=== PATIENT | female | born 1965 | race Two or more races ===

== ENCOUNTER → 2020-01-26 | Emergency (ER) | payer OTHER ==
[~2020-01-26] VITALS: Ht 162.6 cm; Wt 108.9 kg
[~2020-01-26] MED LIST: CLONAZEPAM2 MG; ESTAZOLAM2 MG; GLIPIZIDE10 MG; HYDRALAZINE HCL25 MG; INDERAL LA80 MG; LIPITOR20 MG; LOSARTAN-HCTZ1 EAC2; POTASSIUM CHLO20 ME1 PO; SEROQUEL300 MG; SYNTHROID125 MCG
== END ==
LOC: ER 18:58
DX: K29.60 Other gastritis without bleeding (principal)

== ENCOUNTER 2021-08-11 17:18 | Emergency (ER) | payer OTHER ==
[~2021-08-11] VITALS: Ht 162.6 cm; Wt 99.3 kg
[2021-08-12] MEDS ORDERED: ONDANSETRON ODT4 MG PO (00:51)
[2021-08-12] MEDS ORDERED: INTESTINEX680 M1 PO (00:51)
[2021-08-12] MEDS ORDERED: PEPCID AC20 MG PO (00:51)
[2021-08-12] MEDS ORDERED: DICLOFENAC POTA50 MG PO (00:51)
[2021-08-12] MEDS ORDERED: AMOX-CLAV 875-1 EAC1 PO (00:51)
== END 2021-08-12 01:52 ==
LOC: ER 17:18
DX: K04.7 Periapical abscess without sinus (principal); K08.89 Other specified disorders of teeth and supporting structures; Z20.822 Contact with and (suspected) exposure to COVID-19

== ENCOUNTER 2025-01-25 11:31 | Inpatient (IN) | payer OTHER ==
[~2025-01-25] VITALS: Ht 162.6 cm; Wt 108.9 kg
[~2025-01-25 11:31] MED LIST changes: +AMOX-CLAV 875-1 EAC1 PO; +DICLOFENAC POTA50 MG PO; +INTESTINEX680 M1 PO; +ONDANSETRON ODT4 MG PO; +PEPCID AC20 MG PO
[2025-01-25] MEDS ORDERED: 0.9 % SODIUM CHLORIDE 1,000 ML IV STA (12:57)
[2025-01-25] MEDS ORDERED: ONDANSETRON HCL 2 MG/ML VIAL IV STA (12:57)
[2025-01-25] MEDS ORDERED: FAMOTIDINE/PF 20 MG in 0.9 % SODIUM CHLORIDE 8 ML IV PUSH STA (12:57)
[2025-01-25] MEDS ORDERED: ONDANSETRON HCL 2 MG/ML VIAL ONE ×3 (13:36→19:16)
[2025-01-25] MEDS ORDERED: FAMOTIDINE/PF 20 MG/2 ML VIAL ONE ×2 (13:38→19:13)
[2025-01-25 14:22] LABS: BASO % 0.2 % (0.1-1.2); HEMATOCRIT 42.1 % (34.1-44.9); HEMOGLOBIN 13.2 g/dL (11.2-15.7); LYMPH # 0.86 (1.18-3.74); LYMPH % 3.7 % (19.3-53.1); MEAN CORPUSCULAR HEMOGLOBIN 25.5 pg (25.6-32.2); MONO # 0.37 (0.24-0.82); MONO % 1.6 % (4.7-12.5); NEUT # 21.45 (1.56-6.13); NEUT % 93.6 % (34.0-71.1); PLATELET COUNT 429 K/uL (163-369); RED BLOOD COUNT 5.18 M/uL (3.93-5.22); RED CELL DISTRIBUTION WIDTH 14.6 % (11.6-14.4)
[2025-01-25 14:39] LABS: ALBUMIN 3.9 gm/dL (3.4-5.0); BILIRUBIN TOTAL 1.01 mg/dL (0.3-1.2); CALCIUM 9.8 mg/dL (8.5-10.1); CREATININE SERUM 1.09 mg/dL (0.55-1.02); GFR 51.38; GLOBULINA 4.9 G/DL (2.4-3.5); POTASSIUM 3.75 mEq/L (3.5-5.1); TOTAL PROTEIN 8.8 gm/dL (6.4-8.2)
[2025-01-25] MEDS ORDERED: PROMETHAZINE HCL 25 MG/ML AMPUL ONE (15:56)
[2025-01-25] MEDS ORDERED: PROMETHAZINE HCL 25 MG/ML AMPUL IM ONE (16:00)
[2025-01-25 18:17] LABS: BASO % 0.2 % (0.1-1.2); HEMATOCRIT 41.4 % (34.1-44.9); HEMOGLOBIN 12.9 g/dL (11.2-15.7); LYMPH # 0.63 (1.18-3.74); LYMPH % 2.4 % (19.3-53.1); MEAN CORPUSCULAR HEMOGLOBIN 25.4 pg (25.6-32.2); MONO # 0.39 (0.24-0.82); MONO % 1.5 % (4.7-12.5); NEUT # 24.69 (1.56-6.13); NEUT % 94.9 % (34.0-71.1); PLATELET COUNT 439 K/uL (163-369); RED BLOOD COUNT 5.07 M/uL (3.93-5.22); RED CELL DISTRIBUTION WIDTH 14.8 % (11.6-14.4)
[2025-01-25] MEDS ORDERED: PIPERACILLIN/TAZOBACTAM SODIUM 3.375 GM VIAL IV ONE ×2 (18:30→18:32)
[2025-01-25 19:14] LABS: INR 1.09; PARTIAL THROMBOPLASTIN TIME 27.2 SECONDS (22.0-34.0); PROTHROMBIN TIME 11.8 SECONDS (9.0-11.5)
[2025-01-25] MEDS ORDERED: ONDANSETRON HCL 2 MG/ML VIAL IV ONE (19:15)
[2025-01-25] MEDS ORDERED: FAMOtidine 10 MG/ML (4ML VIAL) IV ONE (19:15)
[2025-01-25 19:30] LABS: URINE APPEARANCE Clear; URINE BILIRRUBIN Negative (NEGATIVE); URINE BLOOD Negative; URINE COLOR Yellow; URINE GLUCOSE Negative (NEGATIVE); URINE LEUKOCYTE Negative; URINE NITRATE Negative; URINE PROTEIN Trace (NEGATIVE); URINE UROBILINOGEN 0.2 E.U./dl
[2025-01-25 19:33] LABS: URINE EPITHELIAL CELLS 10.2 uL (0.0-38.8); URINE RBC 47.4 uL (0.0-20.8); URINE WBC 3.4 uL (0.0-23.2)
[2025-01-25 20:07] LABS: URINE CAST 0.73 uL (0.0-1.40); URINE KETONE 40 (NEGATIVE); URINE YEAST FEW /hpf
[2025-01-25] MEDS ORDERED: DIPHENHYDRAMINE HCL 50 MG/ML VIAL 1ML ONE ×2 (20:07→20:17)
[2025-01-25] MEDS ORDERED: HALOPERIDOL LACTATE 5 MG/ML AMPUL ONE (20:07)
[2025-01-25] MEDS ORDERED: METOCLOPRAMIDE HCL 5 MG/ML VIAL ONE (20:07)
[2025-01-25] MEDS ORDERED: DIPHENHYDRAMINE HCL 50 MG/ML VIAL 1ML IM ONE (20:15)
[2025-01-25] MEDS ORDERED: HALOPERIDOL LACTATE 5 MG/ML AMPUL IM ONE (20:15)
[2025-01-25] MEDS ORDERED: HALOPERIDOL LACTATE 2 MG/ML ML PO ONE (20:15)
[2025-01-25] MEDS ORDERED: METOCLOPRAMIDE HCL 5 MG/ML VIAL IV ONE (20:15)
[2025-01-25] MEDS ORDERED: QUETIAPINE FUMARATE 100 MG TABLET PO SCH (23:21)
[2025-01-25] MEDS ORDERED: MORPHINE SULFATE 4 MG/ML CARTRIDGE IV PRN (23:30)
[2025-01-25] MEDS ORDERED: 0.9 % SODIUM CHLORIDE 1,000 ML IV SCH (23:30)
[2025-01-25] MEDS ORDERED: ACETAMINOPHEN 500 MG GEL..CAP PO PRN (23:30)
[2025-01-25] MEDS ORDERED: ONDANSETRON HCL 4 MG in 0.9 % SODIUM CHLORIDE 50 ML IV PRN (23:30)
[2025-01-26] MEDS ORDERED: PIPERACILLIN/TAZOBACTAM SODIUM 3.375 GM in DEXTROSE 5 % IN WATER 100 ML IV SCH
[2025-01-26] MEDS ORDERED: PIPERACILLIN/TAZOBACTAM SODIUM 3.375 GM VIAL IV ONE (00:39)
[2025-01-26 05:11] VITALS: BP 108/61; O2SAT 100
[2025-01-26] MEDS ORDERED: LEVOTHYROXINE SODIUM 112 MCG TABLET PO SCH (06:00)
[2025-01-26 07:30] VITALS: BP 171/72; O2SAT 96
[2025-01-26] MEDS ORDERED: FAMOTIDINE/PF 20 MG in 0.9 % SODIUM CHLORIDE 8 ML IV PUSH SCH (09:00)
[2025-01-26] MEDS ORDERED: GABAPENTIN 800 MG TABLET PO SCH (09:00)
[2025-01-26] MEDS ORDERED: ENOXAPARIN SODIUM 40 MG/0.4 ML SYRINGE SUBCUTANEO SCH (09:00)
[2025-01-26] MEDS ORDERED: LORazepam 1 MG TABLET PO SCH (21:00)
[2025-01-27 01:56] VITALS: BP 139/75; O2SAT 95
[2025-01-27 09:02] LABS: BASO % 0.3 % (0.1-1.2); EOS # 0.01 (0.04-0.54); HEMATOCRIT 33.6 % (34.1-44.9); HEMOGLOBIN 10.7 g/dL (11.2-15.7); LYMPH # 1.28 (1.18-3.74); LYMPH % 5.8 % (19.3-53.1); MEAN CORPUSCULAR HEMOGLOBIN 25.9 pg (25.6-32.2); MONO # 0.95 (0.24-0.82); MONO % 4.3 % (4.7-12.5); NEUT # 18.88 (1.56-6.13); NEUT % 85.6 % (34.0-71.1); PLATELET COUNT 361 K/uL (163-369); RED BLOOD COUNT 4.13 M/uL (3.93-5.22)
[2025-01-27 09:14] VITALS: BP 136/78; O2SAT 98
[2025-01-27] MEDS ORDERED: DEXTROSE 5%-WATER 100ML IV.SOLN ONE ×2 (14:35→14:37)
[2025-01-27 16:00] VITALS: BP 151/73; O2SAT 98
[2025-01-28 01:00] VITALS: BP 145/80; O2SAT 96
[2025-01-28] MEDS ORDERED: LOPERAMIDE HCL 2 MG CAPSULE PO PRN (07:45)
[2025-01-28 08:43] VITALS: BP 163/88; O2SAT 97
[2025-01-28] MEDS ORDERED: FAMOTIDINE/PF 20 MG/2 ML VIAL IV SCH (09:00)
[2025-01-28 16:00] VITALS: BP 157/82; O2SAT 99
[2025-01-29 07:36] LABS: BASO % 0.3 % (0.1-1.2); EOS # 0.01 (0.04-0.54); EOS % 0.1 % (0.7-7.0); HEMATOCRIT 33.1 % (34.1-44.9); HEMOGLOBIN 10.6 g/dL (11.2-15.7); LYMPH # 1.69 (1.18-3.74); LYMPH % 9.3 % (19.3-53.1); MEAN CORPUSCULAR HEMOGLOBIN 25.9 pg (25.6-32.2); MONO # 0.97 (0.24-0.82); MONO % 5.3 % (4.7-12.5); NEUT # 15.12 (1.56-6.13); NEUT % 82.8 % (34.0-71.1); PLATELET COUNT 354 K/uL (163-369); RED BLOOD COUNT 4.09 M/uL (3.93-5.22); RED CELL DISTRIBUTION WIDTH 14.5 % (11.6-14.4)
[2025-01-29 08:19] VITALS: BP 183/75; O2SAT 95
[2025-01-29 16:23] VITALS: BP 147/79; O2SAT 97
[2025-01-30] VITALS: BP 137/84; O2SAT 98
[2025-01-30 08:00] VITALS: BP 155/80; O2SAT 100
[2025-01-30 10:24] LABS: BASO % 0.3 % (0.1-1.2); EOS # 0.03 (0.04-0.54); EOS % 0.2 % (0.7-7.0); HEMATOCRIT 38.1 % (34.1-44.9); HEMOGLOBIN 12.1 g/dL (11.2-15.7); LYMPH # 1.62 (1.18-3.74); LYMPH % 10.6 % (19.3-53.1); MEAN CORPUSCULAR HEMOGLOBIN 25.5 pg (25.6-32.2); MONO # 0.66 (0.24-0.82); MONO % 4.3 % (4.7-12.5); NEUT # 12.76 (1.56-6.13); NEUT % 83.4 % (34.0-71.1); PLATELET COUNT 250 K/uL (163-369); RED BLOOD COUNT 4.75 M/uL (3.93-5.22); RED CELL DISTRIBUTION WIDTH 14.7 % (11.6-14.4)
[2025-01-30 11:14] LABS: CALCIUM 8.6 mg/dL (8.5-10.1); CREATININE SERUM 1.08 mg/dL (0.55-1.02); GFR 51.93
[2025-01-30 11:25] LABS: POTASSIUM 2.91 mEq/L (3.5-5.1)
[2025-01-30] MEDS ORDERED: POTASSIUM CHLORIDE 20MEQ/100ML H2O PB IV NR (12:30)
[2025-01-30] MEDS ORDERED: POTASSIUM CHLORIDE IN WATER 40 MEQ/100 ML PIGGYBAG IV NR (13:20)
[2025-01-31 01:22] VITALS: BP 149/79; O2SAT 100
[2025-01-31 08:59] VITALS: BP 123/80; O2SAT 98
[2025-01-31 09:58] LABS: BASO % 0.3 % (0.1-1.2); EOS # 0.09 (0.04-0.54); EOS % 0.6 % (0.7-7.0); HEMATOCRIT 34.6 % (34.1-44.9); HEMOGLOBIN 10.9 g/dL (11.2-15.7); LYMPH # 1.76 (1.18-3.74); LYMPH % 12.2 % (19.3-53.1); MEAN CORPUSCULAR HEMOGLOBIN 25.8 pg (25.6-32.2); MONO % 4.8 % (4.7-12.5); NEUT # 11.73 (1.56-6.13); NEUT % 81.1 % (34.0-71.1); PLATELET COUNT 342 K/uL (163-369); RED BLOOD COUNT 4.23 M/uL (3.93-5.22)
[2025-01-31 10:11] LABS: CALCIUM 8.3 mg/dL (8.5-10.1); CREATININE SERUM 1.07 mg/dL (0.55-1.02); GFR 52.49; MAGNESIUM 1.9 mg/dL (1.8-2.4); PHOSPHOROUS 2.8 mg/dL (2.5-4.9); POTASSIUM 3.4 mEq/L (3.5-5.1)
[2025-01-31] MEDS ORDERED: HYDROCORTISONE 2.5% 30 GM TUBE RECTAL PRN (13:00)
[2025-01-31] MEDS ORDERED: BUPIVACAINE HCL/Mpf 0.5% 10ML VIAL ONE (16:39)
[2025-01-31] MEDS ORDERED: QUETIAPINE FUMARATE 100 MG TABLET PO SCH (17:00)
[2025-01-31] MEDS ORDERED: BUPIVACAINE HCL 30 ML VIAL IJ ONE (17:00)
[2025-01-31] MEDS ORDERED: MORPHINE SULFATE 2 MG/ML CARTRIDGE IV ONE (17:55)
[2025-01-31 20:11] VITALS: BP 119/73; O2SAT 96
[2025-02-01 00:49] VITALS: BP 109/67; O2SAT 99
[2025-02-01 07:30] VITALS: BP 166/98; O2SAT 99
[2025-02-01] MEDS ORDERED: SUCRALFATE 1 G TABLET PO SCH (09:00)
[2025-02-01] MEDS ORDERED: SIMETHICONE 125 MG CAPSULE PO SCH (09:00)
[2025-02-01] MEDS ORDERED: LORazepam 1 MG TABLET PO SCH (09:00)
[2025-02-01] MEDS ORDERED: LACTOBACILLUS ACIDOPHILUS 1 CAP CAP PO SCH (09:00)
== END 2025-02-01 13:34 | disposition home or self-care (01) | DRG 419 ==
LOC: ER 11:46 → SURG 23:22
PROVIDERS: Emergency Medicine; General Practice; Internal Medicine; Surgery; ADMIT Student in an Organized Health Care Education/Training Program; ATTEND Student in an Organized Health Care Education/Training Program
PROC: BW21ZZZ Computerized Tomography (CT Scan) of Abdomen and Pelvis (ICD-10-PCS; 2025-01-25)
PROC: BW40ZZZ Ultrasonography of Abdomen (ICD-10-PCS; 2025-01-25)
PROC: CF2YYZZ Tomographic (Tomo) Nuclear Medicine Imaging of Hepatobiliary System and Pancreas using Other Radionuclide (ICD-10-PCS; 2025-01-25)
PROC: BF532Z0 Other Imaging of Gallbladder and Bile Ducts using Fluorescing Agent, Intraoperative (ICD-10-PCS; 2025-01-31)
PROC: 0FT44ZZ Resection of Gallbladder, Percutaneous Endoscopic Approach (ICD-10-PCS; principal; 2025-01-31 18:00)
DX: K81.0 Acute cholecystitis (principal); E86.0 Dehydration; K82.8 Other specified diseases of gallbladder; R10.11 Right upper quadrant pain; I10 Essential (primary) hypertension; E11.40 Type 2 diabetes mellitus with diabetic neuropathy, unspecified; Z79.4 Long term (current) use of insulin; E78.5 Hyperlipidemia, unspecified; E03.9 Hypothyroidism, unspecified